=== PATIENT | male | born 1980 | race African-American/Black ===

== ENCOUNTER 2018-04-21 20:36 | Inpatient (IN) | payer OTHER ==
[~2018-04-21] VITALS: Ht 177.8 cm; Wt 105.8 kg
--- NOTE | ~2018-04-21 | EKG ---
[place], [place] ELECTROCARDIOGRAM REPORT NAME: BETINA HAMM UNIT #: [id number] ROOM: 516 DOCTOR: JANE DRAFT REPORT BIRTHDATE: [birth year] [facility] Test Date: 2018-04-21 Test Time: 21:08:13 Pat Name: BETINA HAMM Department: Room: 516 Gender: M Sander Setter: DARIUSZ : 1980 Requested By: CIRO VASQUEZ Order Number: [id number] Reading MD: Russell Monsivais MD Measurements Intervals [place] Rate: 78 P: 46 HI: 159 QRS: 23 QRSD: 96 T: 30 QT: 398 QTc: 454 Interpretive Statements Sinus rhythm Electronically Signed On 04-22-2018 16:18:14 PST by Russell Monsivais MD CM:EKGRPT:ELECTROCARDIOGRAM REPORT 07 CIRO WHITE DRAFT REPORT CIRO VASQUEZ DO
[~2018-04-21 20:36] MED LIST: AMLODIPINE BESYL5 MG PO; ATARAX,VISTARIL50 MG PO; CARBIDOPA/LEVOD1 TA1 PO; HYDR25T PO; K-TAB ER8 MEQ PO
[2018-04-21 20:40] VITALS: BP 136/76
[2018-04-21 21:11] LABS: BASO % 0.4 % (0.0-1.0); EOS # 0.1 10*3/uL (0.0-0.4); EOS % 1.7 % (1.0-4.0); HEMATOCRIT 39.5 % (42.0-52.0); HEMOGLOBIN 14.2 g/dl (14.0-18.0); LYMPH # 2.5 10*3/uL (1.3-4.4); LYMPH % 34.9 % (27.0-41.0); MEAN CELL VOLUME 84.4 fl (80.0-94.0); MEAN CORPUSCULAR HGB 30.3 pg (27.0-31.0); MEAN CORPUSCULAR HGB CONC 35.9 g/dl (33.0-37.0); MEAN PLATELET VOLUME 10.2 fl (9.6-12.3); MONO # 0.7 10*3/uL (0.1-1.0); MONO % 9.7 % (3.0-9.0); NEUT # 3.8 10*3/uL (2.3-7.9); PLATELET COUNT AUTOMATED 201 10*3/uL (130-400); RED BLOOD COUNT 4.68 10*6/uL (4.50-5.90); RED CELL DISTRI WIDTH 13.3 % (0-14.5); WHITE BLOOD COUNT 7.2 10*3/uL (4.8-10.8)
[2018-04-21 21:21] LABS: URINE AMPHETAMINES < 1000 (1000ng/ml); URINE BARBITURATES < 200 (200ng/ml); URINE BENZODIAZEPINES > 200 (200ng/ml); URINE CANNABINOIDS (THC) > 50 (50ng/ml); URINE COCAINE > 300 (300ng/ml); URINE METHADONE < 300 (300ng/ml); URINE OPIATES < 300 (300ng/ml)
[2018-04-21 21:23] LABS: URINE PHENCYCLIDINE < 25 (25ng/ml)
[2018-04-21 22:02] LABS: ALBUMIN 3.6 gm/dl (3.1-4.5); ALKALINE PHOSPHATASE 71 U/L (45-117); BUN 18 mg/dl (7-24); CHLORIDE 106 mmol/L (98-107); CREATININE 1.17 mg/dL (0.70-1.30); POTASSIUM 4.1 mmol/L (3.5-5.1); SGOT/AST 22 IU/L (3-35); SGPT/ALT 18 U/L (12-78); SODIUM 141 mmol/L (136-145); TOTAL PROTEIN 7.1 gm/dL (6.4-8.2)
[2018-04-21 22:06] LABS: ACETAMINOPHEN (TYLENOL) < 5.0 ug/ml (10-30); ETHYL ALCOHOL < 3.0 mg/dl (<3); TROPONIN I < 0.015 ng/ml (<0.045)
[2018-04-21 23:34] VITALS: BP 140/81; BP 140/82
[2018-04-21] MEDS ORDERED: LISINOPRIL10 M1 PO (23:55)
[2018-04-21] MEDS ORDERED: MUCINEX ER600 MG PO (23:56)
[2018-04-22 08:00] VITALS: BP 142/72
[2018-04-22 12:00] VITALS: BP 148/82; BP 159/105
[2018-04-22 16:00] VITALS: BP 137/89
[2018-04-22 20:00] VITALS: BP 142/98; BP 147/107
[2018-04-23] VITALS: BP 148/82; BP 149/86
[2018-04-23 08:00] VITALS: BP 150/88
[2018-04-23 12:00] VITALS: BP 128/98
[2018-04-23 12:30] VITALS: BP 154/92
[2018-04-23 16:00] VITALS: BP 152/92
[2018-04-23 20:00] VITALS: BP 130/84
[2018-04-24] VITALS: BP 136/86
[2018-04-24 06:16] LABS: HEMATOCRIT 37.7 % (42.0-52.0); HEMOGLOBIN 13.5 g/dl (14.0-18.0); MEAN CELL VOLUME 84.2 fl (80.0-94.0); MEAN CORPUSCULAR HGB 30.1 pg (27.0-31.0); MEAN CORPUSCULAR HGB CONC 35.8 g/dl (33.0-37.0); MEAN PLATELET VOLUME 10.8 fl (9.6-12.3); PLATELET COUNT AUTOMATED 207 10*3/uL (130-400); RED BLOOD COUNT 4.48 10*6/uL (4.50-5.90); RED CELL DISTRI WIDTH 13.1 % (0-14.5); WHITE BLOOD COUNT 6.1 10*3/uL (4.8-10.8)
[2018-04-24 06:45] LABS: CREATININE 1.03 mg/dL (0.70-1.30)
[2018-04-24 06:52] LABS: ATYPICAL LYMPHS 3 % (0-0); BASOPHILS 3 % (0-1); TOTAL CELLS COUNTED 100 #CELLS
[2018-04-24 06:53] LABS: PLATELET SUFFICIENCY NORMAL (NORMAL)
[2018-04-24 08:00] VITALS: BP 132/70
[2018-04-24 12:00] VITALS: BP 154/96
[2018-04-24 20:00] VITALS: BP 152/90
[2018-04-25] VITALS: BP 143/86
[2018-04-25] MEDS ORDERED: LISINOPRIL20 MG PO (09:55)
== END 2018-04-25 10:15 | disposition home or self-care (01) | DRG 897 ==
LOC: ED 20:36 → 5E 22:53 → EDHOLD 22:53 → 5E 23:11
PROVIDERS: Student in an Organized Health Care Education/Training Program; ADMIT Internal Medicine
DX: F11.23 Opioid dependence with withdrawal (principal); I10 Essential (primary) hypertension; F17.200 Nicotine dependence, unspecified, uncomplicated; E66.9 Obesity, unspecified; F12.10 Cannabis abuse, uncomplicated; F14.10 Cocaine abuse, uncomplicated; F13.10 Sedative, hypnotic or anxiolytic abuse, uncomplicated; Z82.49 Family history of ischemic heart disease and other diseases of the circulatory system; Z71.6 Tobacco abuse counseling; Z68.33 Body mass index [BMI] 33.0-33.9, adult